=== PATIENT | female | born 1980 | race Hispanic/Latino ===

== ENCOUNTER 2023-09-16 13:41 | Emergency (ER) | payer SELFPAY ==
[2023-09-16 13:43] VITALS: BP 112/74
--- NOTE | 2023-09-16 14:55 | ED.GENMED ---
History of Present Illness
<Bianca Chen PA-C - Last Filed: 09/17/23 11:38>
General
Chief Complaint: Numbness
Source: patient and intelligence officer basic (friend)
Exam Limitations: other (Upper [place] speaking)
Time Seen by Provider: 09/16/23 14:14
Nursing documentation reviewed up to this point in time: agreed with
Travel History
Have you had any contact with someone who has COVID-19?: No
Do you have any symptoms of coronavirus? Fever > 100 degrees, chills, cough, shortness of breath, sore throat, loss of taste or smell, muscle aches, or headache?: No
History of Present Illness
History of Present Illness:
Patient is a 42-year-old female with no significant past medical history presenting for evaluation of left arm paresthesia for the past 20 days. 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
a house. She denies any known trauma or injury. Pain in the left shoulder/arm is worse with movement. Patient also endorses some tingling of her right thigh. She denies any recent viruses/illnesses.
She denies any fever, chills, bowel/bladder incontinence, saddle anesthesia. Patient is walking without difficulty. No chest pain or shortness of breath. She denies any headache, visual changes
Patient does not take any medications daily. No known drug allergies
Past History
<Bianca Chen PA-C - Last Filed: 09/17/23 11:38>
Past History
ED Past Medical History: None
Social History
Tobacco: Non-smoker
Personal:
Living: with family
Phy Exam
<Bianca Chen PA-C - Last Filed: 09/17/23 11:38>
Physical Exam
Physical Exam:
General: Well appearing and non-toxic
Vitals: Vital signs stable, afebrile
HEENT: Atraumatic, normocephalic, protecting airway
Neck: appears supple, no meningeal signs; no cervical spine tenderness or midline spinal tenderness; some tenderness to left paracervical muscles
CV: No evidence of cyanosis
Resp: No evidence of respiratory distress, lung
Abd: Soft, nontender, non-distended
Extremities: No deformities, right arm neurovascularly intact, pain with overhead movement
Neuro: alert and oriented x [address], speech normal, cranial nerves II through XII intact, strength 5 out of 5 in upper and lower extremities, sensation fully intact
Psych: Normal affect
Skin: Intact, no rashes
Course
<Bianca Chen PA-C - Last Filed: 09/17/23 11:38>
Orders/Labs/Results
Orders:
Orders
09/16/23 13:49
Electrocardiogram (*1) Urgent
Reason for Study: Chest Pain
EKG- Treatment ONCE
09/16/23 14:46
Ibuprofen [Motrin] 400 mg PO NOW STA
09/16/23 15:20
Prednisone [Deltasone] 50 mg PO NOW STA
Vital Signs
Initial and Last Documented VS:
Initial Vital Signs
Temp Pulse Resp BP Pulse Ox
98.8 F 82 19 112/74 98
09/16/23 13:43 09/16/23 13:43 09/16/23 13:43 09/16/23 13:43 09/16/23 13:43
Last Documented Vital Signs
Temp Pulse Resp BP Pulse Ox
98.8 F 82 19 112/74 98
09/16/23 13:43 09/16/23 13:43 09/16/23 13:43 09/16/23 13:43 09/16/23 13:43
<Volodymyr Lake DO - Last Filed: 09/16/23 15:27>
Orders/Labs/Results
Orders:
Orders
09/16/23 13:49
Electrocardiogram (*1) Urgent
Reason for Study: Chest Pain
EKG- Treatment ONCE
09/16/23 14:46
Ibuprofen [Motrin] 400 mg PO NOW STA
09/16/23 15:20
Prednisone [Deltasone] 50 mg PO NOW STA
Vital Signs
Initial and Last Documented VS:
Initial Vital Signs
Temp Pulse Resp BP Pulse Ox
98.8 F 82 19 112/74 98
09/16/23 13:43 09/16/23 13:43 09/16/23 13:43 09/16/23 13:43 09/16/23 13:43
Last Documented Vital Signs
Temp Pulse Resp BP Pulse Ox
98.8 F 82 19 112/74 98
09/16/23 13:43 09/16/23 13:43 09/16/23 13:43 09/16/23 13:43 09/16/23 13:43
<Bianca Chen PA-C - Last Filed: 09/17/23 11:38>
MDM/Problems Addressed
Differential Diagnosis Includes:
Cervical radiculopathy, rotator cuff injury, adhesive capsulitis, muscular sclerosis, cervical muscle strain
MDM/Problems Addressed:
Patient is a 42 year old female presenting with left arm tingling and right thigh tingling ongoing for the past 20 days. She does have some degree of neck discomfort but denies any known trauma or injury. 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 Vital signs are stable.
Physical exam as documented above. There are no focal neurologic deficits on exam. She has some mild paracervical spine tenderness on right side but no bony tenderness. Suspect likely a cervical radiculopathy. MS was discussed with patient due to
some degree of symptoms bilaterally although she is displaying so other signs/symptoms. Will treat with steroids and patient will follow-up with primary care. Information given for [facility]. Neurology referral provided if symptoms
persist. Patient stable for discharge. She is comfortable with plan. All questions answered.
Chronic conditions affecting care:
N/A
Acute Exacerbation and/or Progression of Chronic Illness:
N/A
<Bianca Chen PA-C - Last Filed: 09/17/23 11:38>
*EKG
Interpreted by ED Provider?: Yes
EKG Intrepretation Date: 09/16/23
Interpretation: normal
Comparison EKG: no comparison EKG present
Heart Rate: 65
Rate: normal
Rhythm: sinus
[place]: normal axis
Interval: normal interval
QRS Pattern: normal QRS
Ischemia: no ischemia
*[employer] Interpretation
Rate: [employer]- N/A
*Critical Care Note
Total Time (30-74mins, 75-104mins- exclusive of procedures): Not Applicable
ED Attending Note
<Bianca Chen PA-C - Last Filed: 09/17/23 11:38>
-
Portions of this chart may have been created with voice recognition software.� Occasional wrong word or��sound alike� substitutions may have occurred due to the inherent limitations of voice recognition software.
<Volodymyr Lake DO - Last Filed: 09/16/23 15:27>
ED Attending Note
Patient seen and examined by attending physician: Yes
I performed the substantive portion of visit, reviewed & personally made and approve the management plan that is documented in note by myself or SINAN.: Yes
I performed a history and physical exam of patient and discussed management with resident, I reviewed resident's note and agree with documented findings and plan of care.: Yes
ED Attending Note:
I evaluated patient at bedside, patient has paresthesias to the left upper extremity associated with some degree of left-sided neck discomfort. However, the patient also has some paresthesias to the right thigh. We talked about the possibility of
cervical radiculopathy. However given the concern for right thigh issues as well, I discussed multiple sclerosis as well and recommend neurology follow-up or at least PMD after trial of steroids.
Discharge Plan
Departure
Patient Disposition: Home (Routine Discharge)
Date of Disposition: 09/16/23
Time of Disposition: 15:21
Patient with high blood pressure during this ER visit?: No
Condition: Good
Covid-19: Not Applicable
Discharge Problem:
Cervical radiculopathy, Right leg paresthesias
Instructions: Radiculopathy (DC), Paresthesia (DC)
Prescriptions:
New
methylprednisolone [Methylpred DP] 4 mg Tablets,Dose Pack
See Rx Instructions .ROUTE .COMPLEX Qty: 21 0RF
Rx Instructions:
orally per package directions
No Action
prednisone 20 MG tablet
40 mg PO DAILY Qty: 8 0RF
Referrals:
[facility] [Outside] - Follow up in 1 week
Adam Gill MD [Active] - As needed
NONE,* [Family Provider] -
Activity Restrictions/Additional Instructions:
- Return to the emergency department for any high fevers, severe headache, severe back pain/neck pain, numbness in lower extremities, weakness, worsening in current symptoms, or any other concerns
-I have given you prescription for a steroid Dosepak. You have received your first dose of steroid in the emergency department. You can start prescription tomorrow.
-You should follow-up with primary care for further evaluation/management. A contact has been given for a neurologist. If numbness/tingling persist you should follow-up with neurology.
Interventions
Interventions:
*Risk Screen - Suicide Last Done: 09/16/23 13:43
*General Assessment Last Done: 09/16/23 13:43
*Neglect/Abuse Screening Last Done: 09/16/23 13:43
ED- Fall Risk Assessment Last Done: 09/16/23 15:35
*ED COVID-19 Vaccine History Last Done: 09/16/23 15:35
*Nursing Disposition Last Done: 09/16/23 15:35
ED- Neurological Assessment Last Done: 09/16/23 15:28
Discharge Date and Time
Discharge Date/Time: 09/16/23 15:36
[2023-09-16] MEDS: DELTASONE 50 MG PO (15:27)
== END 2023-09-16 15:36 | disposition home or self-care (01) ==
LOC: EMR 13:41
PROVIDERS: EMERGENCY PHYSICIAN Emergency Medicine
DX: M54.12 Radiculopathy, cervical region (principal); R20.2 Paresthesia of skin
CPT/HCPCS: 99283; 93005